=== PATIENT | female | born 1995 ===

== ENCOUNTER 2020-06-06 14:31 | Emergency (ER) | payer MEDICAID ==
[~2020-06-06] VITALS: Ht 162.6 cm; Wt 86.4 kg
[2020-06-06 14:40] VITALS: BP 134/88
--- NOTE | 2020-06-06 15:30 | NUR ---
PT TOLD ADMITTING THAT SHE NEEDED TO LEAVE AND GO TO WORK. PT WAS FOUND IN THE PARKING LOT WAITING TO LEAVE. SPOKE WITH PT, SHE STATES THAT SHE CALLED HER WORK AND THAT THERE WAS NO ONE TO COVER HER SHIFT AND THAT IF SHE DID NOT GO TO WORK SHE WAS AFRAID SHE WOULD GET IN TROUBLE. PT'S TRIED TO GET PT TO STAY AND BE SEEN BUT PT REFUSED. PT STATES THAT IF HER HEADACHE PERSISTED SHE WOULD RETURN AFTER WORK. PT ADVISED TO RETURN SHOULD HEADACHE PERSIST OR WORSEN AND PT PROMISED THAT SHE WOULD. PROVIDER NOTIFIED, NO FURTHER ACTION
== END 2020-06-06 15:38 | disposition left against medical advice (07) ==
LOC: ER 14:32
DX: R51 Headache (principal); Z53.21 Procedure and treatment not carried out due to patient leaving prior to being seen by health care provider

== ENCOUNTER 2020-06-21 09:10 | Emergency (ER) | payer MEDICAID ==
[~2020-06-21] VITALS: Ht 162.6 cm; Wt 86.3 kg
[2020-06-21] MEDS ORDERED: diphenhydrAMINE 50 mg/ml inj IV ONE (10:05)
[2020-06-21] MEDS ORDERED: ketorolac tromethamine 15mg/ml inj. IV ONE (10:05)
[2020-06-21] MEDS ORDERED: normal saline 1000ML IV soln IVB ONE (10:05)
[2020-06-21] MEDS ORDERED: proCHLORperazine 10 MG/2 ml inj IV ONE (10:05)
[2020-06-21] MEDS ORDERED: CIPR10DR LEFT EAR (10:14)
[2020-06-21 11:08] VITALS: BP 112/78
== END 2020-06-21 11:08 | disposition home or self-care (01) ==
LOC: ER 09:10
DX: H60.92 Unspecified otitis externa, left ear (principal); G43.909 Migraine, unspecified, not intractable, without status migrainosus; R11.2 Nausea with vomiting, unspecified; Z79.899 Other long term (current) drug therapy
CPT/HCPCS: 96374; 96375; 99284; J0780; J1200; J1885; J7030